=== PATIENT | female | born 1985 | race Caucasian/White ===

== ENCOUNTER → 2016-06-19 | Outpatient (CLI) | payer OTHER | LOC: MW.CHOBGYN 08:30 | PROVIDERS: ATTEND Nurse Practitioner Women's Health | DX: R10.9 Unspecified abdominal pain (principal) | CPT/HCPCS: 36415; 84703; 85025 ==

== ENCOUNTER 2018-04-16 10:39 | Emergency (ER) | payer OTHER ==
--- NOTE | 2018-04-16 11:05 | EDM.PDOC ---
ED HPI GENERAL MEDICAL PROBLEM - General Chief Complaint: Respiratory Problem Stated Complaint: COUGH Time Seen by Provider: 04/16/18 10:45 Source of Information: Reports: Patient History Limitations: Reports: No Limitations - History of Present Illness INITIAL COMMENTS - FREE TEXT/NARRATIVE: HISTORY AND PHYSICAL: History of present illness: Patient is a 32-year-old female who presents to the emergency room with complaints of cough, bilateral ear pain, body aches and sore throat. She states she has been around multiple persons to have had influenza and bronchitis. Over the past 2-3 days her symptoms have progressively gotten worse. She denies any fever, chills, chest pain or shortness of breath. Denies any abdominal pain, nausea, vomiting, diarrhea or constipation. Denies any chance of . She has been able to eat and drink appropriately. Review of systems: As per history of present illness and below otherwise all systems reviewed and negative. Past medical history: As per history of present illness and as reviewed below otherwise noncontributory. Surgical history: As per history of present illness and as reviewed below otherwise noncontributory. Social history: See social history for further information Family history: As per history of present illness and as reviewed below otherwise noncontributory. Physical exam: General: Well-developed and well-nourished 32-year-old female. Alert and oriented. Nontoxic appearing and in no acute distress. HEENT: Atraumatic, normocephalic, pupils equal and reactive bilaterally, negative for conjunctival pallor or scleral icterus, mucous membranes moist, TMs normal bilaterally, mild erythema to the posterior oropharynx without exudateeck supple, nontender, trachea midline. No drooling or trismus noted. No meningeal signs. No hot potato voice noted. Lungs: Clear but diminished throughout, breath sounds equal bilaterally, chest nontender. Dry nonproductive cough noted. Heart: S1S2, regular rate and rhythm without overt murmur Abdomen: Soft, nondistended, nontender. Negative for masses or hepatosplenomegaly. Negative for costovertebral tenderness. Pelvis: Stable nontender. Genitourinary: Deferred. Rectal: Deferred. Skin: Intact, warm, dry. No lesions or rashes noted. Extremities: Atraumatic, negative for cords or calf pain. Neurovascular unremarkable. Neuro: Awake, alert, oriented. Cranial nerves II through XII unremarkable. Cerebellum unremarkable. Motor and sensory unremarkable throughout. Exam nonfocal. Notes: Negative influenza and strep screening. X-ray shows a trace left infrahilar infiltrate. Medication education was reviewed. Supportive care measures were reviewed and discussed. She voices understanding and agreeable to plan of care. Denies any further questions or concerns at this time. Diagnostics: Influenza, strep, 2 view chest x-ray Therapeutics: None Prescription: Zpack Medrol Dosepak Phenergan w/ Codeine (#4oz) Impression: Atypical Pneumonia Plan: 1. Please take the medication as directed. 2. Tylenol and/or ibuprofen as needed for pain management. Phenergan with codeine for moderate to severe pain. This medication may cause drowsiness a do not take it will driving her needing to be functioning outside of the house. You may use any [id number]-pjt-eonipjh cough cold medications as directed. 3. Please follow-up with your primary care provider in the next 1-2 days. Return to the ED as needed and as discussed. Definitive disposition and diagnosis as appropriate pending reevaluation and review of above. Chest Pain Score (Numeric/FACES): 5 Throat Pain Score (Numeric/FACES): 7 - Related Data Allergies Allergy/AdvReac Type Severity Reaction Status Date / Time tioconazole Allergy Cannot Verified 04/16/18 10:50 [From Monistat 1 Remember (tioconazole)] Home Meds: Home Meds Citalopram [Citalopram HBr] 1 tab DAILY 04/16/18 [History] Labetalol HCl [Labetalol] 1 tab TID 04/16/18 [History] metFORMIN HCl [Metformin HCl ER] 1 tab DAILY 04/16/18 [History] Past Medical History - Past Health History Medical/Surgical History: Denies Medical/Surgical History Cardiovascular History: Reports: Hypertension Psychiatric History: Reports: Anxiety, Depression - Past Surgical History HEENT Surgical History: Reports: Adenoidectomy, Myringotomy w Tube(s), Tonsillectomy Musculoskeletal Surgical History: Reports: Other (See Below) Other Musculoskeletal Surgeries/Procedures:: humerus repair Social & Family History - Family History Family Medical History: Noncontributory - Tobacco Use Smoking Status *Q: Never Smoker - Recreational Drug Use Recreational Drug Use: No ED ROS GENERAL - Review of Systems Review Of Systems: ROS reveals no pertinent complaints other than HPI. ED EXAM, GENERAL - Physical Exam Exam: See Below (See dictation) Course - Vital Signs Last Recorded V/S: Last Vital Signs Temp 96.1 F 04/16/18 10:44 Pulse 98 04/16/18 10:44 Resp 18 04/16/18 10:44 BP 129/79 04/16/18 10:44 Pulse Ox 96 04/16/18 10:44 - Orders/Labs/Meds Orders: Active Orders 24 hr Category Date Time Status CULTURE STREP A CONFIRMATION [RM] Stat Lab 04/16/18 11:07 Results STREP SCRN A RAPID W CULT CONF [RM] Stat Lab 04/16/18 11:07 Results Departure - Departure Time of Disposition: 11:41 Disposition: Home, Self-Care 01 Clinical Impression: Atypical pneumonia - Discharge Information Instructions: Community-Acquired Pneumonia, Adult, [id number] Referrals: PCP,None [Primary Care Provider] - Forms: ED Department Discharge Additional Instructions: The following information is given to patients seen in the emergency department who are being discharged to home. This information is to outline your options for follow-up care. We provide all patients seen in our emergency department with a follow-up referral. The need for follow-up, as well as the timing and circumstances, are variable depending upon the specifics of your emergency department visit. If you don't have a primary care physician on staff, we will provide you with a referral. We always advise you to contact your personal physician following an emergency department visit to inform them of the circumstance of the visit and for follow-up with them and/or the need for any referrals to a consulting specialist. The emergency department will also refer you to a specialist when appropriate. This referral assures that you have the opportunity for follow-up care with a specialist. All of these measure are taken in an effort to provide you with optimal care, which includes your follow-up. Under all circumstances we always encourage you to contact your private physician who remains a resource for coordinating your care. When calling for follow-up care, please make the office aware that this follow-up is from your recent emergency room visit. If for any reason you are refused follow-up, please contact the [facility] Emergency Department at and asked to speak to the emergency department charge nurse. [facility] [address] [place] [address] [facility] [address] [place] [address] 1. Please take the medication as directed. 2. Tylenol and/or ibuprofen as needed for pain management. Phenergan with codeine for moderate to severe pain. This medication may cause drowsiness a do not take it will driving her needing to be functioning outside of the house. You may use any zxso-spo-usestom cough cold medications as directed. 3. Please follow-up with your primary care provider in the next 1-2 days. Return to the ED as needed and as discussed. - My Orders Last 24 Hours: My Active Orders 04/16/18 11:07 CULTURE STREP A CONFIRMATION [RM] Stat STREP SCRN A RAPID W CULT CONF [RM] Stat - Assessment/Plan Last 24 Hours: My Active Orders 04/16/18 11:07 CULTURE STREP A CONFIRMATION [RM] Stat STREP SCRN A RAPID W CULT CONF [] Stat
[2018-04-16 11:12] VITALS: BP 129/79
--- NOTE | 2018-04-16 12:01 | CR ---
EXAMINATION: Two-view chest (PA and Lateral views). HISTORY: Shortness of breath. FINDINGS: The trachea is midline. The cardiomediastinal silhouette is within normal limits. Trace left infrahilar infiltrate and/or atelectasis. No pleural effusion or pneumothorax. Osseous structures appear unremarkable. IMPRESSION: 1. Trace left infrahilar atelectasis and/or infiltrate.
== END 2018-04-16 12:13 | disposition home or self-care (01) ==
LOC: MW.ED 10:39
DX: J18.9 Pneumonia, unspecified organism (principal); I10 Essential (primary) hypertension; F41.9 Anxiety disorder, unspecified; F32.9 Major depressive disorder, single episode, unspecified; Z88.8 Allergy status to other drugs, medicaments and biological substances; Z79.899 Other long term (current) drug therapy
CPT/HCPCS: 71046; 71046-26; 87081; 87804; 87880-QW; 99283

== ENCOUNTER 2019-11-14 20:35 | Inpatient (IN) | payer OTHER ==
[2019-11-14] MEDS ORDERED: Tranexamic Acid 1,000 MG in Sodium Chloride 0.9% 100 ML IV PRN (21:08)
[2019-11-14] MEDS ORDERED: Sodium Chloride 0.9% 10 ML SDV IV PRN (21:08)
[2019-11-14] MEDS ORDERED: Sodium Chloride 0.9% 2.5 ML Syringe FLUSH PRN (21:08)
[2019-11-14] MEDS ORDERED: Sodium Chloride 0.9% 10 ML Syringe FLUSH PRN (21:08)
[2019-11-14] MEDS ORDERED: Misoprostol 25 MCG (1/4 of 100 MCG) Tab VAG PRN ×2 (21:08)
[2019-11-14] MEDS ORDERED: Water For Irrigation,Sterile 1,000 ML Container IRR PRN (21:08)
[2019-11-14] MEDS ORDERED: Terbutaline 1 MG/ML SDV SUBCUT PRN (21:08)
[2019-11-14] MEDS ORDERED: Misoprostol 200 MCG Tab PO PRN (21:08)
[2019-11-14] MEDS ORDERED: Methylergonovine 0.2 MG/1 ML Amp IM PRN (21:08)
[2019-11-14] MEDS ORDERED: Carboprost Tromethamine 250 MCG/1 ML Amp IM PRN (21:08)
[2019-11-14] MEDS ORDERED: Ondansetron 4 MG/2 ML SDV IVPUSH PRN (21:08)
[2019-11-14] MEDS ORDERED: Lidocaine 1% 50 ML MDV INJECT PRN (21:08)
[2019-11-14] MEDS ORDERED: Oxytocin/0.9 % Sodium Chloride 30 UNIT/500 ML BAG IV SCH ×2 (21:15)
[2019-11-14] MEDS: Lactated Ringers 1,000 ML IV SCH (22:30)
[2019-11-15] MEDS: Lactated Ringers 1,000 ML IV SCH ×4 (04:22→16:03)
[2019-11-15] MEDS: Butorphanol 1 MG/ML SDV IVPUSH PRN ×2 (10:43→13:15)
[2019-11-15] MEDS ORDERED: Ropivacaine HCl/PF 100 ML ONE (14:39)
[2019-11-15] MEDS ORDERED: fentaNYL 100 MCG/2 ML SDV ONE (14:39)
--- NOTE | 2019-11-15 15:05 | PCM.PREANE ---
Preanesthetic Assessment - Anesthesia/Transfusion/Family Hx Anesthesia History: Prior Anesthesia Without Reaction Family History of Anesthesia Reaction: No Transfusion History: No Prior Transfusion(s) - Physical Assessment NPO Status Date: 11/15/19 NPO Status Time: 00:05 Height: 1.63 m Weight: 102.512 kg ASA Class: 2 - Lab Values: Laboratory Last Values WBC 12.95 K/uL (4.0-11.0) H 11/14/19 22: RBC 3.87 M/uL (4.30-5.90) L 11/14/19 22:19 Hgb 9.9 g/dL (12.0-16.0) L 11/14/19 22: Hct 30.6 % (36.0-46.0) L 11/14/19 22: MCV 79.1 fL (80.0-98.0) L 11/14/19 22: MCH 25.6 pg (27.0-32.0) L 11/14/19 22: MCHC 32.4 g/dL (31.0-37.0) 11/14/19 22: RDW Std Deviation 44.6 fl (28.0-62.0) 11/14/19 22: RDW Coeff of Nga 16 % (11.0-15.0) H 11/14/19 22:19 Plt Count 261 K/uL (150-400) 11/14/19 22:19 MPV 12.60 fL (7.40-12.00) H 11/14/19 22:19 POC Glucose 80 mg/dL (60-110) 11/15/19 11:22 COVID-19 (LORI) NEGATIVE (NEGATIVE) 11/14/19 21:05 Blood Type A POSITIVE 11/14/19 22: Antibody Screen NEGATIVE 11/14/19 22:19 - Allergies Allergies/Adverse Reactions: Allergies Allergy/AdvReac Type Severity Reaction Status Date / Time tioconazole Allergy Cannot Verified 04/16/18 10:50 [From Monistat 1 Remember (tioconazole)] - Acknowledgements Anesthesia Type Planned: Epidural Pt an Appropriate Candidate for the Planned Anesthesia: Yes Alternatives and Risks of Anesthesia Discussed w Pt/Guardian: Yes Pt/Guardian Understands and Agrees with Anesthesia Plan: Yes PreAnesthesia Questionnaire - Past Health History Medical/Surgical History: Denies Medical/Surgical History HEENT History: Reports: Impaired Vision Cardiovascular History: Reports: Hypertension 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 History: Reports: Polycystic Ovaries, Other (See Below) Other OB/BYN History: PSOS Psychiatric History: Reports: Anxiety, Depression Endocrine/Metabolic History: Reports: Diabetes, Gestational - Past Surgical History HEENT Surgical History: Reports: Adenoidectomy, Myringotomy w Tube(s), Tonsillectomy Musculoskeletal Surgical History: Reports: Other (See Below) Other Musculoskeletal Surgeries/Procedures:: humerus repair - SUBSTANCE USE Smoking Status *Q: Never Smoker Second Hand Smoke Exposure: No Recreational Drug Use History: No - HOME MEDS Home Medications: Home Meds Citalopram [Citalopram HBr] 1 tab DAILY 04/16/18 [History] Labetalol HCl [Labetalol] 1 tab TID 04/16/18 [History] metFORMIN HCl [Metformin HCl ER] 1 tab DAILY 04/16/18 [History] - CURRENT (IN HOUSE) MEDS Current Meds: Current Medications Butorphanol Tartrate (Stadol) 1 mg IVPUSH Q1H PRN PRN Reason: Pain Last Admin: 11/15/19 13:15 Dose: 1 mg Documented by: Carboprost Tromethamine (Hemabate Ds) 250 mcg IM ASDIRECTED PRN PRN Reason: Post Hemorrhage Lactated Ringer's (Ringers, Lactated) 1,000 mls @ 150 mls/hr IV ASDIRECTED TAMMY Last Admin: 11/15/19 13:22 Dose: 150 mls/hr Documented by: Oxytocin/Sodium Chloride (Oxytocin 30 Unit/500 Ml-Ns) 30 unit in 500 mls @ 999 mls/hr IV TITRATE TAMMY Tranexamic Acid 1,000 mg/ (Sodium Chloride) 110 mls @ 660 mls/hr IV ONETIME PRN PRN Reason: Bleeding Oxytocin/Sodium Chloride (Oxytocin 30 Unit/500 Ml-Ns) 30 unit in 500 mls @ 2 mls/hr IV TITRATE TAMMY; Protocol Last Titration: 11/15/19 12:13 Dose: 8 munits/min, 8 mls/hr Documented by: Lidocaine HCl (Xylocaine 1%) 50 ml INJECT ONETIME PRN PRN Reason: Laceration repair Methylergonovine Maleate (Methergine) 0.2 mg IM ASDIRECTED PRN PRN Reason: Post Hemorrhage Misoprostol (Cytotec) 200 mcg PO ONETIME PRN PRN Reason: Post Hemorrhage Misoprostol (Cytotec) 25 mcg VAG ONETIME PRN PRN Reason: Cervical Ripening Last Admin: 11/14/19 23:14 Dose: 25 mcg Documented by: Misoprostol (Cytotec) 25 mcg VAG Q4H PRN PRN Reason: Cervical Ripening Last Admin: 11/15/19 03:21 Dose: 25 mcg Documented by: Ondansetron HCl (Zofran) 4 mg IVPUSH Q4H PRN PRN Reason: Nausea/Vomiting Sodium Chloride (Saline Flush) 10 ml FLUSH ASDIRECTED PRN PRN Reason: Keep Vein Open Sodium Chloride (Saline Flush) 2.5 ml FLUSH ASDIRECTED PRN PRN Reason: Keep Vein Open Sodium Chloride (Normal Saline) 10 ml IV ASDIRECTED PRN PRN Reason: IV Use Sterile Water (Sterile Water For Irrigation) 1,000 ml IRR ASDIRECTED PRN PRN Reason: delivery Terbutaline Sulfate (Brethine) 0.25 mg SUBCUT ASDIRECTED PRN PRN Reason: Tacysystole Discontinued Medications Fentanyl (Sublimaze) Confirm Administered Dose 100 mcg .ROUTE .STK-MED ONE Stop: 11/15/19 14:40 Ropivacaine (Naropin 0.2%) Confirm Administered Dose 100 mls @ as directed .ROUTE .STK-MED ONE Stop: 11/15/19 14:40
--- NOTE | 2019-11-15 15:11 | PCM.PRNOTE ---
- Free Text/Narrative Note: Anes Note pt requested labor epidural for L & D. Risks and methods discussed. She wishes to proceed Level L2-L3 midline approach. Sterile technique Chloroprep scrub to lumbar area Sterile Fenestrated dr4ape applied Epidural space easily achieved. Singel attempt using JOLIE technique JOLIE at 4 cm. Cath threaded 5cm with ease Cath scured at skin at 10cm using sterile clear adhesive dressing Test dose 1501. 3cc 1.5% lido with epi neg load 1504 10cc 0.2% ropivacine with 1mcg/cc fentanyl added Rate is 8cc/hr with 6cc q 20min bolus JEANNNIE well Time with patient [id number] Kee Rivera DATA WAREHOUSING ENGINEER
--- NOTE | 2019-11-15 20:52 | PCM.OPNOTE ---
<Manisha Gomes - Last Filed: 11/15/19 20:44> - General Post-Op/Procedure Note Date of Surgery/Procedure: 11/15/19 Operative Procedure(s): Spontaneous vaginal devliery Pre Op Diagnosis: IOL at 39/3 for GDM diet controlled and chronic HTN Post-Op Diagnosis: same Anesthesia Technique: Epidural Secondary Surgeon: Anitra Preciado Anesthesia Provider: Kee Rivera Brick Chimney Builder: Manisha Gomes Pathology: Placenta with intact membranes EBL in mLs: 250 Complications: None known Condition: Good Free Text/Narrative:: Liveborn male infant weight pending, APGARs 5 and 7 at 1 and 5 minutes respectively via over a vaginal laceration approximated, bulb suction and CPAP, mom and infant progressing well [id number] following <Anitra Preciado - Last Filed: 11/15/19 21:02> - General Post-Op/Procedure Note Free Text/Narrative:: Dictation [id number] Intake & Output 11/15/19 11/15/19 11/15/19 06:59 14:59 22:59 Intake Total 1000 1999 Balance 1000 1999
[2019-11-15] MEDS ORDERED: Lanolin 100% Cream 7 GM Tube TOP PRN (20:54)
[2019-11-15] MEDS ORDERED: Witch Hazel Medicated Pads 40/Jar TOP PRN (20:54)
[2019-11-15] MEDS ORDERED: Docusate Sodium 100 MG Cap PO PRN (20:54)
[2019-11-15] MEDS ORDERED: oxyCODONE 5 MG Tab PO PRN (20:54)
[2019-11-15] MEDS ORDERED: Ibuprofen 800 MG Tab PO PRN (20:54)
[2019-11-15] MEDS ORDERED: Bisacodyl 10 MG Supp RECTAL PRN (20:54)
[2019-11-15] MEDS ORDERED: Acetaminophen 500 MG Tab PO PRN (20:54)
[2019-11-15] MEDS ORDERED: Benzocaine/Menthol 20%-0.5% Spray 78 GM Cannister TOP PRN (20:54)
[2019-11-15] MEDS ORDERED: Ibuprofen 400 MG Tab PO PRN (20:54)
--- NOTE | 2019-11-15 22:00 | OR ---
SURGEON: Anitra Preciado M.D. DATE OF PROCEDURE: 11/15/2019 PREOPERATIVE DIAGNOSES: 1. A 39-3/7 weeks' intrauterine . 2. Gestational diabetes, diet controlled. 3. Chronic hypertension. POSTOPERATIVE DIAGNOSES: 1. A 39-3/7 weeks' intrauterine . 2. Gestational diabetes, diet controlled. 3. Chronic hypertension. PROCEDURE: Spontaneous vaginal delivery with a first-degree vaginal laceration repair PRIMARY SURGEON: Anitra Preciado MD HOME HEALTH CARE PROVIDER: Manisha Gomes MS4 ANESTHESIA: Epidural. ESTIMATED BLOOD LOSS: 250 mL. COMPLICATIONS: None known. FINDINGS: Viable male, score of 5 at one minute and 7 at five minutes, weight is pending. Spontaneous delivery, intact placenta, 3-vessel cord. DISPOSITION: Infant to nursery, mom in LDRP, stable. PROCEDURE DETAILS: Yina is a 34-year-old primigravida at 39-3/7 weeks' gestational age, who presents on the evening of 11/14/2019 for scheduled induction of labor due to gestational diabetes and chronic hypertension. On initial examination, she was found to be 1 to 2 cm, underwent Cytotec ripening, responded nicely to this through the evening hours, and by the following morning was found to be 2 cm, 70% effaced, at a minus 1 station. Therefore, she was transitioned to Pitocin. Category 1 heart tones. Sugars were well controlled. The patient became increasingly uncomfortable throughout the morning hours, underwent amniotomy early afternoon with clear fluid. She is group B beta strep negative. Throughout the afternoon, the patient became increasingly uncomfortable, underwent anesthesia in the form of epidural, became more comfortable. Shortly after 5 p.m. was found to be 6 cm, 80% to 90% effaced, at a minus 1 station. An IUPC was placed to help monitor contractions more closely and within the next 2 hours was able to progress to complete. Began pushing efforts shortly after 7 p.m. I was called for delivery shortly after 8 p.m. Upon my arrival, the patient was placed in modified dorsal lithotomy position, was prepped and draped in the usual aseptic manner. With contractions, the patient was able to push effectively. She was at a +3 station. Continued with pushing efforts. Was able to deliver infant's head atraumatically spontaneously, followed by anterior shoulder, posterior shoulder, and remainder of the body without difficulty. Infant's oropharynx and nares were bulb suctioned. Large amount of clear fluid was present. Infant was handed off to his mother with attending nursing staff at her side. After a delay, cord was clamped x2 and cut. Cord arterial, cord venous, cord blood sampling obtained. Light pressure was applied while the placenta was delivered spontaneously intact. Vigorous fundal uterine massage was then applied while 30 units of Pitocin was delivered in 500 mL of IV fluid. Upon inspection of cervix, vaginal sidewall, and perineum, there was found to be a first-degree vaginal laceration, was repaired using 3-0 Vicryl in continuous running locked fashion. Hemostasis appeared evident. Sponge count, instrument count, and needle count were correct. The patient remained in LDRP, infant to nursery. CHAUNCEY / GABE /[id number]
[2019-11-16] MEDS: Acetaminophen 500 MG Tab PO PRN ×3 (00:13→12:48)
[2019-11-16 06:05] LABS: BLOOD UREA NITROGEN,BUN 7 mg/dL (7.0-18.0); CARBON DIOXIDE,CO2 22.9 mmol/L (21.0-32.0); CHLORIDE,CL 104 mmol/L (98-107); GLUCOSE RANDOM 94 mg/dL (74-106); POTASSIUM,K 3.6 mmol/L (3.5-5.1); SODIUM,NA 133 mmol/L (136-145)
--- NOTE | 2019-11-16 07:17 | PCM48HPAN ---
Post Anesthesia Note - EVALUATION WITHIN 48HRS OF ANESTHETIC Vital Signs in Normal Range: Yes Patient Participated in Evaluation: Yes Respiratory Function Stable: Yes Airway Patent: Yes Cardiovascular Function Stable: Yes Hydration Status Stable: Yes Pain Control Satisfactory: Yes Nausea and Vomiting Control Satisfactory: Yes Mental Status Recovered: Yes Vital Signs: Last Vital Signs Temp 36.3 C 11/16/19 03:30 Pulse 83 11/16/19 03:30 Resp 15 11/16/19 03:30 BP 106/56 L 11/16/19 03:30 Pulse Ox 94 L 11/16/19 03:30
--- NOTE | 2019-11-16 08:20 | PCM.PNPP ---
<EliseoManisha Haritha - Last Filed: 11/16/19 08:14> - General Info Date of Service: 11/16/19 Admission Dx/Problem (Free Text): IOL at 39/3 for GDM and chronic hypertension Subjective Update: Patient is feeling well, ambulating and planning on showering, urinating, minima l pain, waiting for fasting labs to eat, no nausea or vomiting, progressing will Functional Status: Reports: Pain Controlled, Tolerating Diet (Reports hunger but waiting for fasting glucose to eat ), Ambulating, Urinating Pain Score: 1 - Review of Systems General: Reports: No Symptoms HEENT: Reports: No Symptoms Pulmonary: Reports: No Symptoms Cardiovascular: Reports: No Symptoms Gastrointestinal: Reports: No Symptoms Genitourinary: Reports: No Symptoms Musculoskeletal: Reports: No Symptoms Skin: Reports: No Symptoms Neurological: Reports: No Symptoms Psychiatric: Reports: No Symptoms - General Info Date of Service: 11/16/19 - Patient Data Vital Signs - Most Recent: Last Vital Signs Temp 97.4 F 11/16/19 03:30 Pulse 83 11/16/19 03:30 Resp 15 11/16/19 03:30 BP 106/56 L 11/16/19 03:30 Pulse Ox 94 L 11/16/19 03:30 Weight - Most Recent: 102.512 kg I&O - Last 24 Hours: Intake & Output 11/15/19 11/16/19 11/16/19 22:59 06:59 14:59 Intake Total 1999 Balance 1999 Lab Results - Last 24 Hours: Laboratory Results - last 24 hr 11/15/19 11/15/19 11/15/19 Range/Units 11:22 15:04 19:01 Hgb (12.0-16.0) g/dL Hct (36.0-46.0) % Cord ABG pH (7.18-7.38) Cord ABG Base Excess (-10--2) Cord VBG pH (7.25-7.45) Cord VBG Base Excess (-10--2) Sodium (136-145) mmol/L Potassium (3.5-5.1) mmol/L Chloride (98-107) mmol/L Carbon Dioxide (21.0-32.0) mmol/L BUN (7.0-18.0) mg/dL Creatinine (0.6-1.0) mg/dL Est Cr Clr Drug Dosing mL/min Estimated GFR (MDRD) ml/min Glucose (74-106) mg/dL POC Glucose 80 73 68 (60-110) mg/dL Calcium (8.5-10.1) mg/dL 11/15/19 11/16/19 11/16/19 Range/Units 20:18 00:46 05:36 Hgb 9.1 L (12.0-16.0) g/dL Hct 27.9 L (36.0-46.0) % Cord ABG pH 7.208 (7.18-7.38) Cord ABG Base Excess -9 (-10--2) Cord VBG pH 7.312 (7.25-7.45) Cord VBG Base Excess -7 (-10--2) Sodium (136-145) mmol/L Potassium (3.5-5.1) mmol/L Chloride (98-107) mmol/L Carbon Dioxide (21.0-32.0) mmol/L BUN (7.0-18.0) mg/dL Creatinine (0.6-1.0) mg/dL Est Cr Clr Drug Dosing mL/min Estimated GFR (MDRD) ml/min Glucose (74-106) mg/dL POC Glucose 183 H (60-110) mg/dL Calcium (8.5-10.1) mg/dL 11/16/19 Range/Units 05:36 Hgb (12.0-16.0) g/dL Hct (36.0-46.0) % Cord ABG pH (7.18-7.38) Cord ABG Base Excess (-10--2) Cord VBG pH (7.25-7.45) Cord VBG Base Excess (-10--2) Sodium 133 L (136-145) mmol/L Potassium 3.6 (3.5-5.1) mmol/L Chloride 104 (98-107) mmol/L Carbon Dioxide 22.9 (21.0-32.0) mmol/L BUN 7 (7.0-18.0) mg/dL Creatinine 0.8 (0.6-1.0) mg/dL Est Cr Clr Drug Dosing 86.37 mL/min Estimated GFR (MDRD) > 60.0 ml/min Glucose 94 (74-106) mg/dL POC Glucose (60-110) mg/dL Calcium 8.6 (8.5-10.1) mg/dL Med Orders - Current: Current Medications Acetaminophen (Tylenol Extra Strength) 500 mg PO Q4H PRN PRN Reason: Pain Acetaminophen (Tylenol Extra Strength) 1,000 mg PO Q4H PRN PRN Reason: Pain Last Admin: 11/16/19 00:13 Dose: 1,000 mg Documented by: Benzocaine/Menthol (Dermoplast Pain Relief 20%-0.5% [facility]) 0 gm TOP ASDIRECTED PRN PRN Reason: Perineal Comfort Measure Last Admin: 11/15/19 21:41 Dose: 1 spr Documented by: Bisacodyl (Dulcolax) 10 mg RECTAL ONETIME PRN PRN Reason: Constipation Carboprost Tromethamine (Hemabate Ds) 250 mcg IM ASDIRECTED PRN PRN Reason: Post Hemorrhage Docusate Sodium (Colace) 100 mg PO BID PRN PRN Reason: Constipation Emollient Ointment (Lansinoh Hpa) 0 gm TOP ASDIRECTED PRN PRN Reason: Sore Nipples Lactated Ringer's (Ringers, Lactated) 1,000 mls @ 150 mls/hr IV ASDIRECTED TAMMY Last Admin: 11/15/19 16:03 Dose: 150 mls/hr Documented by: Tranexamic Acid 1,000 mg/ (Sodium Chloride) 110 mls @ 660 mls/hr IV ONETIME PRN PRN Reason: Bleeding Oxytocin/Sodium Chloride (Oxytocin 30 Unit/500 Ml-Ns) 30 unit in 500 mls @ 2 mls/hr IV TITRATE TAMMY; Protocol Last Titration: 11/15/19 20:18 Dose: 999 munits/min, 999 mls/hr Documented by: Ibuprofen (Motrin) 400 mg PO Q4H PRN PRN Reason: Pain Ibuprofen (Motrin) 800 mg PO Q6H PRN PRN Reason: Pain Last Admin: 11/16/19 03:35 Dose: 800 mg Documented by: Methylergonovine Maleate (Methergine) 0.2 mg IM ASDIRECTED PRN PRN Reason: Post Hemorrhage Ondansetron HCl (Zofran) 4 mg IVPUSH Q4H PRN PRN Reason: Nausea/Vomiting Oxycodone HCl (Oxycodone) 5 mg PO Q2H PRN PRN Reason: Pain Sodium Chloride (Saline Flush) 10 ml FLUSH ASDIRECTED PRN PRN Reason: Keep Vein Open Sodium Chloride (Saline Flush) 2.5 ml FLUSH ASDIRECTED PRN PRN Reason: Keep Vein Open Sodium Chloride (Normal Saline) 10 ml IV ASDIRECTED PRN PRN Reason: IV Use Sterile Water (Sterile Water For Irrigation) 1,000 ml IRR ASDIRECTED PRN PRN Reason: delivery Last Admin: 11/15/19 20:51 Dose: 1,000 ml Documented by: Terbutaline Sulfate (Brethine) 0.25 mg SUBCUT ASDIRECTED PRN PRN Reason: Tacysystole Witch Steffi (Tucks) 1 pad TOP ASDIRECTED PRN PRN Reason: comfort care Last Admin: 11/15/19 21:41 Dose: 1 gm Documented by: Discontinued Medications Butorphanol Tartrate (Stadol) 1 mg IVPUSH Q1H PRN PRN Reason: Pain Last Admin: 11/15/19 13:15 Dose: 1 mg Documented by: Fentanyl (Sublimaze) Confirm Administered Dose 100 mcg .ROUTE .STK-MED ONE Stop: 11/15/19 14:40 Oxytocin/Sodium Chloride (Oxytocin 30 Unit/500 Ml-Ns) 30 unit in 500 mls @ 999 mls/hr IV TITRATE TAMMY Ropivacaine (Naropin 0.2%) Confirm Administered Dose 100 mls @ as directed .ROUTE .STK-MED ONE Stop: 11/15/19 14:40 Lidocaine HCl (Xylocaine 1%) 50 ml INJECT ONETIME PRN PRN Reason: Laceration repair Misoprostol (Cytotec) 200 mcg PO ONETIME PRN PRN Reason: Post Hemorrhage Misoprostol (Cytotec) 25 mcg VAG ONETIME PRN PRN Reason: Cervical Ripening Last Admin: 11/14/19 23:14 Dose: 25 mcg Documented by: Misoprostol (Cytotec) 25 mcg VAG Q4H PRN PRN Reason: Cervical Ripening Last Admin: 11/15/19 03:21 Dose: 25 mcg Documented by: - Infant Interaction Infant Disposition, : [place] in Room with Family Interaction: Holding Infant Infant Feeding: Bottle Fed Infant Support Person: - Recovery Exam Fundal Tone: Firm Fundal Level: At Umbilicus Fundal Placement: Midline Lochia Amount: Scant Lochia Color: Rubra/Red Perineum Description: Intact, Minimal Bruising/Swelling Episiotomy/Laceration: Approximated Bladder Status: Voiding Urinary Elimination: Voided - Exam General: Alert, Oriented, Cooperative, No Acute Distress HEENT: Pupils Equal, EOMI, Mucous Membr. Moist/[place] Neck: Supple, Trachea Midline, No JVD Lungs: Clear to Auscultation, Normal Respiratory Effort. No: Crackles, Wheezing Cardiovascular: Regular Rate, Regular Rhythm, No Murmurs GI/Abdominal Exam: Normal Bowel Sounds, Soft, No Organomegaly, No Distention, No Mass, Tender (Uterine fundus slightly tender to deep palpation, RLQ tenderness with deep palapation, no rebound or gaurding ) Extremities: Normal Inspection, Normal Range of Motion, Non-Tender, No Pedal Edema Skin: Warm, Dry, Intact Neurological: No New Focal Deficit, Normal Gait, Normal Speech Psy/Mental Status: Alert, Normal Affect, Normal Mood - Problem List & Annotations (1) Essential (primary) hypertension SNOMED Code(s): 01917350 Code(s): I10 - ESSENTIAL (PRIMARY) HYPERTENSION Status: Acute Current Visit: Yes (2) Gestational diabetes SNOMED Code(s): 18140978 Code(s): O24.419 - GESTATIONAL DIABETES MELLITUS IN , UNSP CONTROL Status: Acute Current Visit: Yes (3) Vaginal delivery SNOMED Code(s): 694007939 Code(s): O80 - ENCOUNTER FOR FULL-TERM UNCOMPLICATED DELIVERY Status: Acute Current Visit: Yes - Problem List Review Problem List Initiated/Reviewed/Updated: Yes - Assessment Assessment:: 34 yo admitted for IOL at 39/3 due to chronic hypertension and GDM-diet controlled s/p over a 1st degree vaginal laceration approximated PPD1, BG 183 last night, waiting on fasting labs this am, BPs stable, progressing well - Plan Plan:: 1. Routine cares 2. GBS negative 3. A+, antibody negative 4. Rubella immune 5. Gestational diabetes mellitus, BG last night 183, awaiting fasting labs this am, continue diet and lifestyle modifications, recheck BG at 6 week 6. Chronic hypertension, continue Labetalol management 7. Discharge at 24 hours pending status of baby, planning on going home if baby is good to go home 8. Pelvic rest x6 weeks 9. Follow-up at visit in 6 weeks 10. PRN Tylenol and Motrin for pain 11. H/H 9.1/27.9 - consider oral iron supplements 12. Call or return if develop fever/chills, increasing abdominal tenderness, or bleeding >1 pad per hour <Anitra Preciado - Last Filed: 11/16/19 08:39> - Patient Data Vital Signs - Most Recent: Last Vital Signs Temp 36.6 C 11/16/19 08:00 Pulse 62 11/16/19 08:00 Resp 17 11/16/19 08:00 BP 112/65 11/16/19 08:00 Pulse Ox 98 11/16/19 08:00 I&O - Last 24 Hours: Intake & Output 11/15/19 11/16/19 11/16/19 22:59 06:59 14:59 Intake Total 1999 Balance 1999 Lab Results - Last 24 Hours: Laboratory Results - last 24 hr 11/15/19 11/15/19 11/15/19 Range/Units 11:22 15:04 19:01 Hgb (12.0-16.0) g/dL Hct (36.0-46.0) % Cord ABG pH (7.18-7.38) Cord ABG Base Excess (-10--2) Cord VBG pH (7.25-7.45) Cord VBG Base Excess (-10--2) Sodium (136-145) mmol/L Potassium (3.5-5.1) mmol/L Chloride (98-107) mmol/L Carbon Dioxide (21.0-32.0) mmol/L BUN (7.0-18.0) mg/dL Creatinine (0.6-1.0) mg/dL Est Cr Clr Drug Dosing mL/min Estimated GFR (MDRD) ml/min Glucose (74-106) mg/dL POC Glucose 80 73 68 (60-110) mg/dL Calcium (8.5-10.1) mg/dL 11/15/19 11/16/19 11/16/19 Range/Units 20:18 00:46 05:36 Hgb 9.1 L (12.0-16.0) g/dL Hct 27.9 L (36.0-46.0) % Cord ABG pH 7.208 (7.18-7.38) Cord ABG Base Excess -9 (-10--2) Cord VBG pH 7.312 (7.25-7.45) Cord VBG Base Excess -7 (-10--2) Sodium (136-145) mmol/L Potassium (3.5-5.1) mmol/L Chloride (98-107) mmol/L Carbon Dioxide (21.0-32.0) mmol/L BUN (7.0-18.0) mg/dL Creatinine (0.6-1.0) mg/dL Est Cr Clr Drug Dosing mL/min Estimated GFR (MDRD) ml/min Glucose (74-106) mg/dL POC Glucose 183 H (60-110) mg/dL Calcium (8.5-10.1) mg/dL 11/16/19 Range/Units 05:36 Hgb (12.0-16.0) g/dL Hct (36.0-46.0) % Cord ABG pH (7.18-7.38) Cord ABG Base Excess (-10--2) Cord VBG pH (7.25-7.45) Cord VBG Base Excess (-10--2) Sodium 133 L (136-145) mmol/L Potassium 3.6 (3.5-5.1) mmol/L Chloride 104 (98-107) mmol/L Carbon Dioxide 22.9 (21.0-32.0) mmol/L BUN 7 (7.0-18.0) mg/dL Creatinine 0.8 (0.6-1.0) mg/dL Est Cr Clr Drug Dosing 86.37 mL/min Estimated GFR (MDRD) > 60.0 ml/min Glucose 94 (74-106) mg/dL POC Glucose (60-110) mg/dL Calcium 8.6 (8.5-10.1) mg/dL Med Orders - Current: Current Medications Acetaminophen (Tylenol Extra Strength) 500 mg PO Q4H PRN PRN Reason: Pain Acetaminophen (Tylenol Extra Strength) 1,000 mg PO Q4H PRN PRN Reason: Pain Last Admin: 11/16/19 08:28 Dose: 1,000 mg Documented by: Benzocaine/Menthol (Dermoplast Pain Relief 20%-0.5% [facility]) 0 gm TOP ASDIRECTED PRN PRN Reason: Perineal Comfort Measure Last Admin: 11/15/19 21:41 Dose: 1 spr Documented by: Bisacodyl (Dulcolax) 10 mg RECTAL ONETIME PRN PRN Reason: Constipation Carboprost Tromethamine (Hemabate Ds) 250 mcg IM ASDIRECTED PRN PRN Reason: Post Hemorrhage Docusate Sodium (Colace) 100 mg PO BID PRN PRN Reason: Constipation Last Admin: 11/16/19 08:28 Dose: 100 mg Documented by: Emollient Ointment (Lansinoh Hpa) 0 gm TOP ASDIRECTED PRN PRN Reason: Sore Nipples Lactated Ringer's (Ringers, Lactated) 1,000 mls @ 150 mls/hr IV ASDIRECTED TAMMY Last Admin: 11/15/19 16:03 Dose: 150 mls/hr Documented by: Tranexamic Acid 1,000 mg/ (Sodium Chloride) 110 mls @ 660 mls/hr IV ONETIME PRN PRN Reason: Bleeding Oxytocin/Sodium Chloride (Oxytocin 30 Unit/500 Ml-Ns) 30 unit in 500 mls @ 2 mls/hr IV TITRATE TAMMY; Protocol Last Titration: 11/15/19 20:18 Dose: 999 munits/min, 999 mls/hr Documented by: Ibuprofen (Motrin) 400 mg PO Q4H PRN PRN Reason: Pain Ibuprofen (Motrin) 800 mg PO Q6H PRN PRN Reason: Pain Last Admin: 11/16/19 03:35 Dose: 800 mg Documented by: Methylergonovine Maleate (Methergine) 0.2 mg IM ASDIRECTED PRN PRN Reason: Post Hemorrhage Ondansetron HCl (Zofran) 4 mg IVPUSH Q4H PRN PRN Reason: Nausea/Vomiting Oxycodone HCl (Oxycodone) 5 mg PO Q2H PRN PRN Reason: Pain Sodium Chloride (Saline Flush) 10 ml FLUSH ASDIRECTED PRN PRN Reason: Keep Vein Open Sodium Chloride (Saline Flush) 2.5 ml FLUSH ASDIRECTED PRN PRN Reason: Keep Vein Open Sodium Chloride (Normal Saline) 10 ml IV ASDIRECTED PRN PRN Reason: IV Use Sterile Water (Sterile Water For Irrigation) 1,000 ml IRR ASDIRECTED PRN PRN Reason: delivery Last Admin: 11/15/19 20:51 Dose: 1,000 ml Documented by: Terbutaline Sulfate (Brethine) 0.25 mg SUBCUT ASDIRECTED PRN PRN Reason: Tacysystole Lupis Kapadia (Tucks) 1 pad TOP ASDIRECTED PRN PRN Reason: comfort care Last Admin: 11/15/19 21:41 Dose: 1 gm Documented by: Discontinued Medications Butorphanol Tartrate (Stadol) 1 mg IVPUSH Q1H PRN PRN Reason: Pain Last Admin: 11/15/19 13:15 Dose: 1 mg Documented by: Fentanyl (Sublimaze) Confirm Administered Dose 100 mcg .ROUTE .STK-MED ONE Stop: 11/15/19 14:40 Oxytocin/Sodium Chloride (Oxytocin 30 Unit/500 Ml-Ns) 30 unit in 500 mls @ 999 mls/hr IV TITRATE TAMMY Ropivacaine (Naropin 0.2%) Confirm Administered Dose 100 mls @ as directed .ROUTE .STK-MED ONE Stop: 11/15/19 14:40 Lidocaine HCl (Xylocaine 1%) 50 ml INJECT ONETIME PRN PRN Reason: Laceration repair Misoprostol (Cytotec) 200 mcg PO ONETIME PRN PRN Reason: Post Hemorrhage Misoprostol (Cytotec) 25 mcg VAG ONETIME PRN PRN Reason: Cervical Ripening Last Admin: 11/14/19 23:14 Dose: 25 mcg Documented by: Misoprostol (Cytotec) 25 mcg VAG Q4H PRN PRN Reason: Cervical Ripening Last Admin: 11/15/19 03:21 Dose: 25 mcg Documented by: - My Orders Last 24 Hours: My Active Orders 11/15/19 Dinner Regular Diet [DIET] 11/15/19 20:54 Patient Status [ADT] Routine May Shower [RC] ASDIRECTED Notify Provider Vital Signs [RC] ASDIRECTED Up ad Babs [RC] ASDIRECTED Vital Signs [RC] PER UNIT ROUTINE Acetaminophen [Tylenol Extra Strength] 1,000 mg PO Q4H PRN Acetaminophen [Tylenol Extra Strength] 500 mg PO Q4H PRN Benzocaine/Menthol [Dermoplast Pain Relief 20%-0.5% [facility]] 0 gm TOP ASDIRECTED PRN Docusate Sodium [Colace] 100 mg PO BID PRN Ibuprofen [Motrin] 400 mg PO Q4H PRN Ibuprofen [Motrin] 800 mg PO Q6H PRN Lanolin [Lansinoh HPA] See Dose Instructions TOP ASDIRECTED PRN bisacodyL [Dulcolax] 10 mg RECTAL ONETIME PRN oxyCODONE 5 mg PO Q2H PRN witch Steffi [Tucks] 1 pad TOP ASDIRECTED PRN Assess Lochia [WOMSER] Per Unit Routine Assess Uterine Involution [WOMSER] Per Unit Routine Ice Therapy [OM.PC] Per Unit Routine Perineal Care [OM.PC] Per Unit Routine Peripheral IV Discontinue [OM.PC] Routine Sitz Bath [OM.PC] Per Unit Routine - Plan Plan:: Patient seen and examined--agree with above. May discharge this evening. Continue labetalol as prescribed. Plan 75 gm GTT at PP visit. Follow up at [facility] 6 weeks. Discharge instructions reviewed. Fasting labs normal.
[2019-11-16 19:43] VITALS: BP 113/63; PULSE 69
== END 2019-11-16 21:59 | disposition home or self-care (01) | DRG 806 ==
LOC: MW.OBCHECK 20:35 → MW.OB 21:09 → OBSVTOIN 11-15 20:18 → MW.OB 11-15 23:02
PROVIDERS: ADMIT Obstetrics & Gynecology; ATTEND Obstetrics & Gynecology
PROC: 10E0XZZ Delivery of Products of Conception, External Approach (ICD-10-PCS; principal; 2019-11-15)
PROC: 0HQ9XZZ Repair Perineum Skin, External Approach (ICD-10-PCS; 2019-11-15)
PROC: 3E0P7VZ Introduction of Hormone into Female Reproductive, Via Natural or Artificial Opening (ICD-10-PCS; 2019-11-15)
PROC: 10907ZC Drainage of Amniotic Fluid, Therapeutic from Products of Conception, Via Natural or Artificial Opening (ICD-10-PCS; 2019-11-15)
PROC: 3E033VJ Introduction of Other Hormone into Peripheral Vein, Percutaneous Approach (ICD-10-PCS; 2019-11-15)
PROC: 3E0R3BZ Introduction of Anesthetic Agent into Spinal Canal, Percutaneous Approach (ICD-10-PCS; 2019-11-15)
PROC: 10H07YZ Insertion of Other Device into Products of Conception, Via Natural or Artificial Opening (ICD-10-PCS; 2019-11-15)
DX: O24.420 Gestational diabetes mellitus in childbirth, diet controlled (principal); O10.92 Unspecified pre-existing hypertension complicating childbirth; Z37.0 Single live birth; Z3A.39 39 weeks gestation of pregnancy; Z11.59 Encounter for screening for other viral diseases; O76 Abnormality in fetal heart rate and rhythm complicating labor and delivery; O70.0 First degree perineal laceration during delivery
CPT/HCPCS: 01967; 36415; 51702; 59025; 59409; 80048; 82803; 82962; 85014; 85018; 85027; 86592; 86850; 86900; 86901; A9270-GY; J0595; J2590; J7120; U0002

== ENCOUNTER 2022-10-31 00:12 | Inpatient (IN) | payer OTHER ==
[2022-10-31] MEDS: Lactated Ringers 1,000 ML IV SCH ×3 (00:30→23:29)
[2022-10-31] MEDS ORDERED: Sodium Chloride 0.9% 20 ML SDV IV PRN (00:46)
[2022-10-31] MEDS ORDERED: Sodium Chloride 0.9% 10 ML Syringe FLUSH PRN (00:46)
[2022-10-31] MEDS ORDERED: Methylergonovine 0.2 MG/1 ML Amp IM PRN (00:46)
[2022-10-31] MEDS ORDERED: Tranexamic Acid 1,000 MG in Sodium Chloride 0.9% 100 ML IV PRN (00:46)
[2022-10-31] MEDS ORDERED: Ondansetron 4 MG/2 ML SDV IVPUSH PRN (00:46)
[2022-10-31] MEDS ORDERED: Carboprost Tromethamine 250 MCG/1 mL Vial IM PRN (00:46)
[2022-10-31] MEDS ORDERED: Water For Irrigation,Sterile 1,000 ML Container IRR PRN (00:46)
[2022-10-31] MEDS ORDERED: Lidocaine 1% 50 ML MDV INJECT PRN (00:46)
[2022-10-31] MEDS ORDERED: Misoprostol 200 MCG Tab PO PRN (00:46)
[2022-10-31] MEDS ORDERED: Sodium Chloride 0.9% 2.5 ML Syringe FLUSH PRN (00:46)
[2022-10-31] MEDS ORDERED: Nalbuphine HCl 10 MG/ 1ML Amp IVPUSH PRN (00:52)
[2022-10-31] MEDS ORDERED: Oxytocin/0.9 % Sodium Chloride 30 UNIT/500 ML BAG IV SCH ×2 (01:00)
[2022-10-31] MEDS ORDERED: Misoprostol 25 MCG (1/4 of 100 MCG) Tab VAG PRN (01:00)
[2022-10-31 01:23] LABS: HEMATOCRIT 31.3 % (36.0-46.0); HEMOGLOBIN 9.9 g/dL (12.0-16.0); MEAN CORPUSCULAR HEMOGLOBIN 24.9 pg (27.0-32.0); MEAN CORPUSCULAR HGB CONC 31.6 g/dL (31.0-37.0); MEAN CORPUSCULAR VOLUME 78.6 fL (80.0-98.0); MEAN PLATELET VOLUME 11.6 fL (7.40-12.00); RED BLOOD CELL COUNT 3.98 M/uL (4.30-5.90); WHITE BLOOD CELL COUNT,WBC 15.89 K/uL (4.0-11.0)
[2022-10-31] MEDS: Misoprostol 25 MCG (1/4 of 100 MCG) Tab VAG PRN ×3 (05:31→14:33)
[2022-10-31] MEDS ORDERED: Phenylephrine HCl 0.5 MG/5 ML AMP IVPUSH PRN (08:21)
[2022-10-31] MEDS ORDERED: ePHEDrine 50 MG/ML SDV IVPUSH PRN ×2 (08:21)
[2022-10-31] MEDS ORDERED: Ropivacaine HCl/PF 400 MG in Premix Bag 1 BAG EPIDUR SCH (08:30)
[2022-10-31] MEDS ORDERED: Labetalol 100 MG Tab PO SCH (09:00)
[2022-10-31] MEDS ORDERED: Dexmedetomidine 200 MCG/2 ML SDV ONE (13:16)
[2022-11-01] MEDS ORDERED: oxyCODONE 5 MG Tab PO PRN (02:18)
[2022-11-01] MEDS ORDERED: Ibuprofen 400 MG Tab PO PRN (02:18)
[2022-11-01] MEDS ORDERED: Benzocaine/Menthol 20%-0.5% Spray 78 GM Cannister TOP PRN (02:18)
[2022-11-01] MEDS ORDERED: Lanolin 100% Cream 7 GM Tube TOP PRN (02:18)
[2022-11-01] MEDS ORDERED: Hydrocortisone 2.5% Crm 30 GM Tube TOP PRN (02:18)
[2022-11-01] MEDS ORDERED: Acetaminophen 500 MG Tab PO PRN (02:18)
[2022-11-01] MEDS ORDERED: Witch Hazel Medicated Pads 40/Jar TOP PRN (02:18)
[2022-11-01] MEDS ORDERED: Bisacodyl 10 MG Supp RECTAL PRN (02:18)
[2022-11-01] MEDS ORDERED: Docusate Sodium 100 MG Cap PO PRN (02:18)
[2022-11-01 02:36] LABS: PH,UMBILICAL ARTERIAL 7.113 (7.18-7.38); PH,UMBILICAL VENOUS 7.403 (7.25-7.45)
[2022-11-01] MEDS: Ibuprofen 800 MG Tab PO PRN ×3 (04:09→18:14)
[2022-11-01] MEDS: Acetaminophen 500 MG Tab PO PRN (12:24)
[2022-11-01 15:10] LABS: HEMATOCRIT 31.1 % (36.0-46.0); HEMOGLOBIN 9.8 g/dL (12.0-16.0)
[2022-11-01 15:29] LABS: CALCIUM 8.4 mg/dL (8.5-10.1); CARBON DIOXIDE,CO2 24.6 mmol/L (21.0-32.0); CREATININE 0.8 mg/dL (0.6-1.0); EST CRCL DRUG DOSING (CG) 83.95 mL/min; POTASSIUM,K 4.3 mmol/L (3.5-5.1)
[2022-11-02] MEDS: Acetaminophen 500 MG Tab PO PRN (03:49)
[2022-11-02] MEDS: Ibuprofen 800 MG Tab PO PRN (03:50)
[2022-11-02 07:10] VITALS: BP 127/71; PULSE 67
== END 2022-11-02 13:30 | disposition home or self-care (01) | DRG 806 ==
LOC: MW.OBCHECK 00:12 → MW.OB 00:13 → MW.OBCHECK 00:47 → MW.OB 00:47 → OBSVTOIN 11-01 01:37 → MW.OB 11-01 03:54
PROVIDERS: ADMIT Obstetrics & Gynecology; ATTEND Obstetrics & Gynecology
PROC: 10E0XZZ Delivery of Products of Conception, External Approach (ICD-10-PCS; principal; 2022-11-01)
PROC: 3E0P7VZ Introduction of Hormone into Female Reproductive, Via Natural or Artificial Opening (ICD-10-PCS; 2022-11-01)
PROC: 3E033VJ Introduction of Other Hormone into Peripheral Vein, Percutaneous Approach (ICD-10-PCS; 2022-11-01)
PROC: 3E0R3BZ Introduction of Anesthetic Agent into Spinal Canal, Percutaneous Approach (ICD-10-PCS; 2022-11-01)
PROC: 00HU33Z Insertion of Infusion Device into Spinal Canal, Percutaneous Approach (ICD-10-PCS; 2022-11-01)
DX: O24.424 Gestational diabetes mellitus in childbirth, insulin controlled (principal); O10.92 Unspecified pre-existing hypertension complicating childbirth; Z37.0 Single live birth; Z90.89 Acquired absence of other organs; Z98.890 Other specified postprocedural states; Z87.81 Personal history of (healed) traumatic fracture; O99.214 Obesity complicating childbirth; Z88.8 Allergy status to other drugs, medicaments and biological substances; Z3A.38 38 weeks gestation of pregnancy
CPT/HCPCS: 01967; 36415; 51701; 51702; 59025; 59409; 80048; 82803; 82947; 85014; 85018; 85027; 86592; 86850; 86900; 86901; A9270-GY; J2590; J3490; J7120